=== PATIENT | male | born 1935 | race Caucasian/White ===

== ENCOUNTER 2018-06-29 12:36 | Emergency (ER) | payer OTHER, MEDICARE ==
[2018-06-29 13:08] VITALS: BP 137/90; PULSE 72; TEMP 98.5; BMI 27.6
--- NOTE | 2018-06-29 13:29 | PDOC ---
History of Present Illness - General Chief Complaint: Injury Stated Complaint: FALL Time Seen by Provider: 06/29/18 12:37 History Source: Patient Exam Limitations: No Limitations - History of Present Illness Initial Comments: 06/29/18 13:29 83 year old male with past medical history of CAD, HTN, DM, HLD, gout, CVA, valve replacement (unsure if metal), on coumadin presents with mechanical fall. Pt fell and landed on R side. hit right elbow. Does not think he hit head. No LOC. Takes coumadin daily. No other complaints. Ambulates without difficulty. Past History - Past Medical History Allergies/Adverse Reactions: Allergies Allergy/AdvReac Type Severity Reaction Status Date / Time No Known Allergies Allergy Verified 06/29/18 12:38 Home Medications: Ambulatory Orders Warfarin Sodium [Coumadin] 5 mg PO DAILY 06/29/18 CVA: Yes COPD: No Diabetes: Yes HTN: Yes Hypercholesterolemia: Yes - Surgical History Cardiac Surgery: Yes (valve replacement.) - Suicide/Smoking/Psychosocial Hx Smoking History: Never smoked Hx Alcohol Use: No Drug/Substance Use Hx: No Substance Use Type: None Review of Systems - Review of Systems Able to Perform ROS?: Yes Comments:: 06/29/18 13:30 ADULT ROS GENERAL/CONSTITUTIONAL: No fever or chills. No weakness. HEAD, EYES, EARS, NOSE AND THROAT: No change in vision. No ear pain or discharge. No sore throat. CARDIOVASCULAR: No chest pain or shortness of breath. RESPIRATORY: No cough, wheezing, or hemoptysis. GASTROINTESTINAL: No nausea, vomiting, diarrhea or constipation. GENITOURINARY: No dysuria, frequency, or change in urination. MUSCULOSKELETAL: +Right elbow pain. SKIN: No rash NEUROLOGIC: No headache, vertigo, loss of consciousness, or change in strength/ sensation. ENDOCRINE: No increased thirst. No abnormal weight change. HEMATOLOGIC/LYMPHATIC: No anemia, easy bleeding, or history of blood clots. ALLERGIC/IMMUNOLOGIC: No hives or skin allergy. *Physical Exam - Vital Signs Last Vital Signs Temp Pulse Resp BP Pulse Ox 98.5 F 72 18 137/90 100 06/29/18 12:39 06/29/18 12:39 06/29/18 12:39 06/29/18 12:39 06/29/18 12:39 - Physical Exam Comments: 06/29/18 13:30 GENERAL: Awake, alert, and fully oriented, in no acute distress HEAD: No signs of trauma EYES: PERRLA, EOMI, sclera anicteric, conjunctiva clear ENT: Auricles normal inspection, hearing grossly normal, nares patent Moist mucosa NECK: Normal ROM, supple, no c-spine tenderness. LUNGS: Breath sounds equal, clear to auscultation bilaterally. No wheezes, and no crackles HEART: Regular rate and rhythm, normal S1 and S2, no murmurs, rubs or gallops ABDOMEN: Soft, nontender, No guarding, no rebound. No masses EXTREMITIES: Normal range of motion, no edema. No clubbing or cyanosis. No cords, erythema, or tenderness RUE: large hematoma over right elbow. FROM of right elbow. Mild discomfort on range of motion. 2+ radial pulse. Sensation and strength intact in the median/ radian/ulnar nerve distribution. PELVIS: stable with no tenderness NEUROLOGICAL: Cranial nerves II through XII grossly intact. Normal speech, normal gait SKIN: Warm, Dry, normal turgor, no rashes or lesions noted. ED Treatment Course - RADIOLOGY Radiology Studies Ordered: Category Date Time Status HEAD CT WITHOUT CONTRAST [CT] Stat CT Scan 06/29/18 13:03 Ordered ELBOW-RIGHT [RAD] Stat Radiology 06/29/18 13:03 Ordered Medical Decision Making - Medical Decision Making 06/29/18 13:31 Vital Signs Temp Pulse Resp BP Pulse Ox 98.5 F 72 18 137/90 100 06/29/18 12:39 06/29/18 12:39 06/29/18 12:39 06/29/18 12:39 06/29/18 12:39 Impression: Mechanical fall with right elbow pain. Head CT to r/o ICH given he's on coumadin and fall. Right elbow xray to r/o fracture. INR check and reassess. 06/29/18 14:50 CT head and right elbow with no acute findings. INR ~5. I advised pt to skip dose tonight and resume tomorrow. Return precautions given including worsening headache, vomiting, lethargy, numbness, weakness. *DC/Admit/Observation/Transfer Diagnosis at time of Disposition: Fall Qualifiers: Encounter type: initial encounter Qualified Code(s): W19.XXXA - Unspecified fall, initial encounter Elbow pain Qualifiers: Laterality: right Qualified Code(s): M25.521 - Pain in right elbow - Discharge Dispostion Disposition: HOME Condition at time of disposition: Good Decision to Admit order: No - Referrals - Patient Instructions Printed Discharge Instructions: DI for Elbow Pain, How to Prevent Falls Additional Instructions: Your CT scan and right elbow xray demonstrates no acute findings. You will likely be more sore tomorrow than today. It may take several days before your symptoms improve. If you have uncontrollable headaches, persistent vomiting, lethargy, numbness, weakness, please return to the ER as you may need another CT scan. Your INR is 5 today. Please skip your coumadin dose tonight and resume tomorrow. - Post Discharge Activity
[2018-06-29 13:41] LABS: PROTHROMBIN TIME (PATIENT) 54.4 SEC (10.2-13.0)
[2018-06-29 13:56] LABS: INR 5.01 (0.82-1.09)
== END 2018-06-29 15:00 | disposition home or self-care (01) ==
LOC: FER 12:36
DX: M25.521 Pain in right elbow (principal); W18.39XA Other fall on same level, initial encounter; Y93.89 Activity, other specified; Y92.9 Unspecified place or not applicable; I10 Essential (primary) hypertension; E11.9 Type 2 diabetes mellitus without complications; E78.5 Hyperlipidemia, unspecified; I25.10 Atherosclerotic heart disease of native coronary artery without angina pectoris; Z86.73 Personal history of transient ischemic attack (TIA), and cerebral infarction without residual deficits; Z79.01 Long term (current) use of anticoagulants
CPT/HCPCS: 36415; 70450-TC; 73070-TC-RT-FY; 85610; 99282-25

== ENCOUNTER 2021-09-20 14:41 | Emergency (ER) | payer OTHER, MEDICARE ==
[2021-09-20 14:56] VITALS: BP 140/63; PULSE 59; TEMP 97.4; BMI 22.4
== END 2021-09-20 16:52 | disposition home or self-care (01) ==
LOC: FER 14:41
DX: S10.93XA Contusion of unspecified part of neck, initial encounter (principal); E04.1 Nontoxic single thyroid nodule; W01.0XXA Fall on same level from slipping, tripping and stumbling without subsequent striking against object, initial encounter
CPT/HCPCS: 70450-TC; 72125-TC; 99284-25